=== PATIENT | male | born 1965 | race American Indian/Alaskan Native ===

== ENCOUNTER 2017-01-03 23:04 | Observation (INO) | payer SELFPAY ==
[2017-01-03 23:05] VITALS: BMI 21.9
[2017-01-03 23:11] VITALS: TEMP 97.6
--- NOTE | 2017-01-03 23:42 | C.PDOC ---
History Of Present Illness A 51 y/o male presents to the ER wanting refills for his medications and c/o hearing voices for a while now. Pt notes that has not been taking his medications regularly. Pt denies suicidal or homicidal ideation, fever, chills, or any other complaints at this time. Time Seen by Provider: 01/03/17 23:42 Chief Complaint (Nursing): Psychiatric Evaluation History Per: Patient History/Exam Limitations: no limitations Onset/Duration Of Symptoms: Days Current Symptoms Are (Timing): Still Present Suicide/Self Injury Attempted (Context): None Modifying Factor(s): None Severity: Mild Associated Symptoms: denies: Suicidal Thoughts, Suicidal Plan Involuntary Hold By: None Recent travel outside of the [place]: No Additional History Per: Patient Past Medical History Reviewed: Historical Data, Nursing Documentation, Vital Signs Vital Signs: Last Vital Signs Temp 97.6 F 01/03/17 23:08 Pulse 81 01/03/17 23:08 Resp 16 01/03/17 23:08 BP 124/83 01/03/17 23:08 Pulse Ox 98 01/04/17 01:29 - Medical History PMH: Anxiety (per old chart but pt denies), Depression (per old chart but pt denies), Schizophrenia (schizoaffective ) Denies: Diabetes, Hepatitis, HIV, HTN, Seizures, Sexually Transmitted Disease - [facility] Procedures GROUP PSYCHOTHERAPY (06/20/16) INDIVID PSYCHOTHERAP NEC (09/14/13) INDIVIDUAL PSYCHOTHERAPY, SUPPORTIVE (06/20/16) MEDICATION MANAGEMENT (01/29/16) OTHER GROUP THERAPY (09/14/13) Family History: States: Diabetes - Social History Hx Tobacco Use: Yes Hx Alcohol Use: No (former drinker) Hx Substance Use: No - Immunization History Hx Tetanus Toxoid Vaccination: No Hx Influenza Vaccination: No Hx Pneumococcal Vaccination: No Review Of Systems Constitutional: Negative for: Fever, Chills Psych: Positive for: Psychosis (Hearing voices). Negative for: Suicidal ideation, Withdrawal Physical Exam - Physical Exam Appears: Non-toxic, No Acute Distress Skin: Warm, Dry Head: Normacephalic Eye(s): bilateral: Normal Inspection Oral Mucosa: Moist Neck: Trachea Midline, Supple Chest: Symmetrical Cardiovascular: Rhythm Regular Respiratory: No Rales, No Rhonchi, No Wheezing Gastrointestinal/Abdominal: Soft, No Tenderness Neurological/Psych: Oriented x3, Normal Speech, Other (Awake and alert. No focal deficit) ED Course And Treatment - Laboratory Results Result Diagrams: 01/03/17 23:59 01/03/17 23:59 O2 Sat by Pulse Oximetry: 98 (RA) Pulse Ox Interpretation: Normal ED OBSERVATION Discharge: Yes Date of observation admission: 01/04/17 Time of observation admission: 01:29 - Observation admission statement Patient is being placed in observation because:: homeless - Goals of Observation Goals of observation are:: social service - Progress Note Progress Note: 01/04/17 01:29 no complaints, vitals stable Disposition Counseled Patient/Family Regarding: Studies Performed, Diagnosis, Need For Followup, Rx Given - Disposition Disposition: HOME/ ROUTINE Disposition Time: 23:42 Condition: FAIR - Clinical Impression Clinical Impression: Medication refill - Scribe Statement The provider has reviewed the documentation as recorded by the Scribe Gonzales hamilton All medical record entries made by the Scribe were at my direction and personally dictated by me. I have reviewed the chart and agree that the record accurately reflects my personal performance of the history, physical exam, medical decision making, and the department course for this patient. I have also personally directed, reviewed, and agree with the discharge instructions and disposition.
[2017-01-04 00:01] LABS: EOS # 0.1 K/uL (0.0-0.7); EOS % 3.3 % (0.0-4.0); HEMATOCRIT 40.7 % (35.0-51.0); LYMPH # 1.3 K/uL (1.0-4.3); LYMPH % 37.2 % (20.0-40.0); MEAN CELL VOLUME 87.8 fL (80.0-94.0); MEAN CORPUSCULAR HEMOGLOBIN 28.8 pg (27.0-31.0); MEAN CORPUSCULAR HGB CONC 32.8 g/dL (33.0-37.0); MEAN PLATELET VOLUME 8.4 fL (7.2-11.7); MONO # 0.6 K/uL (0.0-0.8); MONO % 17.5 % (0.0-10.0); NRBC % 0.1 % (0.0-2.0); RED CELL DISTRIBUTION WIDTH 14.8 % (11.5-14.5); WHITE BLOOD COUNT 3.5 K/uL (4.8-10.8)
[2017-01-04 00:34] LABS: CHLORIDE 100 mmol/L (98-107)
[2017-01-04 00:35] LABS: POTASSIUM 3.9 mmol/L (3.6-5.2); SODIUM 138 mmol/L (132-148)
[2017-01-04 00:37] LABS: ALB/GLOB RATIO 1.2 (1.0-2.1); ALKALINE PHOSPHATASE 66 U/L (38-126); AST/SGOT 31 U/L (17-59); BILIRUBIN,TOTAL 0.5 mg/dL (0.2-1.3); BLOOD UREA NITROGEN 17 mg/dL (9-20); CARBON DIOXIDE 29 mmol/L (22-30); GFR AFRICAN-AMERICAN > 60; TOTAL PROTEIN 6.7 g/dL (6.3-8.3)
[2017-01-04 00:38] LABS: ALCOHOL SERUM < 10 mg/dl (0-10); ALT/SGPT 27 U/L (21-72); CALCIUM 8.6 mg/dl (8.6-10.4); GLUCOSE,RANDOM 95 mg/dL (75-110)
[2017-01-04 05:32] VITALS: BP 113/70; PULSE 73; RESP 20; O2SAT 100
== END 2017-01-04 05:28 | disposition home or self-care (01) ==
LOC: C.ER 23:04 → C.9OBSV 01-04 01:28
PROVIDERS: ADMIT Emergency Medicine; ATTEND Emergency Medicine
DX: F29 Unspecified psychosis not due to a substance or known physiological condition (principal); Z59.0 Homelessness; Z68.21 Body mass index [BMI] 21.0-21.9, adult
CPT/HCPCS: 80053; 80164; 85025; 99284; G0378; G0480

== ENCOUNTER 2017-01-14 23:25 | Emergency (ER) | payer SELFPAY ==
[2017-01-14 23:25] VITALS: BMI 21.9
[2017-01-14 23:35] VITALS: BP 110/76; PULSE 68; RESP 20; TEMP 98.3; O2SAT 100
--- NOTE | 2017-01-15 00:45 | C.PDOC ---
History Of Present Illness 51 year old male presents to the ED seeking a refill for medicines. Patient was recently signed AMA from psych and denies any recent trauma, physical or psychiatrc complaints at this time. Time Seen by Provider: 01/14/17 23:59 Chief Complaint (Nursing): Med Refill History Per: Patient History/Exam Limitations: no limitations Reports Recently: Seen In ED, Hospitalized Recent travel outside of the [place]: No Additional History Per: Prior Records Past Medical History Reviewed: Historical Data, Nursing Documentation, Vital Signs Vital Signs: Last Vital Signs Temp 98.3 F 01/14/17 23:31 Pulse 68 01/14/17 23:31 Resp 20 01/15/17 00:49 BP 110/76 01/14/17 23:31 Pulse Ox 100 01/15/17 05:15 - Medical History PMH: Anxiety (per old chart but pt denies), Depression (per old chart but pt denies), Schizophrenia (schizoaffective ), Seizures - [facility] Procedures GROUP PSYCHOTHERAPY (06/20/16) INDIVID PSYCHOTHERAP NEC (09/14/13) INDIVIDUAL PSYCHOTHERAPY, SUPPORTIVE (06/20/16) MEDICATION MANAGEMENT (01/29/16) OTHER GROUP THERAPY (09/14/13) Family History: States: Diabetes - Social History Hx Tobacco Use: Yes Hx Alcohol Use: No (former drinker) Hx Substance Use: No - Immunization History Hx Tetanus Toxoid Vaccination: No Hx Influenza Vaccination: No Hx Pneumococcal Vaccination: No Review Of Systems Constitutional: Negative for: Fever, Chills, Sweats Cardiovascular: Negative for: Chest Pain, Palpitations Respiratory: Negative for: Cough, Shortness of Breath Gastrointestinal: Negative for: Nausea, Vomiting, Abdominal Pain, Diarrhea Psych: Negative for: Suicidal ideation Physical Exam - Physical Exam Appears: Non-toxic, No Acute Distress Skin: Warm, Dry Head: Atraumatic Eye(s): bilateral: Normal Inspection Extremity: Normal ROM Extremity: Bilateral: Atraumatic Neurological/Psych: Oriented x3 Gait: Steady ED Course And Treatment O2 Sat by Pulse Oximetry: 100 (room air ) Progress Note: Upon arrival to bed side patient was found behind the curtain openly masturbating. Patient was cautioned against so several times by nurse as well. Patient wanted a sandwich and juice but continued to masturbate openly. Pt unable to voice which meds he needed refill for. Pt advised to follow up in mental health ( [facility]) clinic Disposition - Disposition [facility]errals[facility] [[facility]] Disposition: HOME/ ROUTINE Disposition Time: 00:44 Condition: STABLE Forms: General Discharge Instructions - Clinical Impression Clinical Impression: Malingering - Scribe Statement The provider has reviewed the documentation as recorded by the Scribe Liat De Jesus All medical record entries made by the Felipeibe were at my direction and personally dictated by me. I have reviewed the chart and agree that the record accurately reflects my personal performance of the history, physical exam, medical decision making, and the department course for this patient. I have also personally directed, reviewed, and agree with the discharge instructions and disposition.
== END 2017-01-15 00:49 | disposition home or self-care (01) ==
LOC: C.ER 23:25
DX: Z76.5 Malingerer [conscious simulation] (principal)

== ENCOUNTER 2017-01-16 23:26 | Emergency (ER) | payer SELFPAY ==
[2017-01-16 23:26] VITALS: BMI 21.9
[2017-01-16 23:34] VITALS: BP 116/81; PULSE 79; RESP 20; TEMP 98.3; O2SAT 97
--- NOTE | 2017-01-16 23:41 | C.PDOC ---
History Of Present Illness 51 y/o male presents to the ED requesting medication refill of depakote. Pt with frequent visits to ED for the same. Denies any complaints at this time. Time Seen by Provider: 01/16/17 23:38 Chief Complaint (Nursing): Med Refill History Per: Patient History/Exam Limitations: no limitations Severity: None Recent travel outside of the [place]: No Past Medical History Reviewed: Historical Data, Nursing Documentation, Vital Signs Vital Signs: Last Vital Signs Temp 98.3 F 01/16/17 23:33 Pulse 79 01/16/17 23:33 Resp 20 01/16/17 23:33 BP 116/81 01/16/17 23:33 Pulse Ox 97 01/17/17 00:42 - Medical History PMH: Anxiety, Depression, Schizophrenia, Seizures - [facility] Procedures GROUP PSYCHOTHERAPY (06/20/16) INDIVID PSYCHOTHERAP NEC (09/14/13) INDIVIDUAL PSYCHOTHERAPY, SUPPORTIVE (06/20/16) MEDICATION MANAGEMENT (01/29/16) OTHER GROUP THERAPY (09/14/13) Family History: States: Diabetes - Social History Hx Tobacco Use: Yes Hx Alcohol Use: No (former drinker) Hx Substance Use: No - Immunization History Hx Tetanus Toxoid Vaccination: No Hx Influenza Vaccination: No Hx Pneumococcal Vaccination: No Review Of Systems Except As Marked, All Systems Reviewed And Found Negative. Physical Exam - Physical Exam Appears: Non-toxic, No Acute Distress, Other (Pt refuses physical exam) Skin: Dry, No Rash Head: Atraumatic, Normacephalic Eye(s): bilateral: PERRL, EOMI Extremity: Bilateral: Atraumatic Neurological/Psych: Oriented x3, Normal Speech, Normal Cognition ED Course And Treatment O2 Sat by Pulse Oximetry: 97 (room air) Pulse Ox Interpretation: Normal Progress Note: Pt understands he must follow up with psychiatric clinic Disposition - Disposition Disposition: HOME/ ROUTINE Disposition Time: 00:20 Condition: GOOD Prescriptions: Divalproex [Depakote ER] 500 mg PO DAILY #5 ter Forms: General Discharge Instructions - Clinical Impression Clinical Impression: Medication refill, Malingering - PA / NON 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 - Scribe Statement The provider has reviewed the documentation as recorded by the Scribleah Payne All medical record entries made by the Scribe were at my direction and personally dictated by me. I have reviewed the chart and agree that the record accurately reflects my personal performance of the history, physical exam, medical decision making, and the department course for this patient. I have also personally directed, reviewed, and agree with the discharge instructions and disposition.
== END 2017-01-16 23:45 | disposition home or self-care (01) ==
LOC: C.ER 23:26
DX: Z76.0 Encounter for issue of repeat prescription (principal); Z76.5 Malingerer [conscious simulation]

== ENCOUNTER 2017-01-24 03:38 | Emergency (ER) | payer SELFPAY ==
[2017-01-24 03:38] VITALS: BMI 21.9
[2017-01-24 03:55] VITALS: BP 127/72; PULSE 77; RESP 14; TEMP 98.9; O2SAT 98
--- NOTE | 2017-01-24 04:14 | C.PDOC ---
History Of Present Illness Pt request medication refill. Denies any medical complaints. No f/c/n/v Time Seen by Provider: 01/24/17 04:11 Chief Complaint (Nursing): Med Refill History Per: Patient History/Exam Limitations: no limitations Onset/Duration Of Symptoms: Unknown Current Symptoms Are (Timing): Still Present Severity: None Pain Scale Rating Of: 0 Reports Recently: Seen In ED, Treated By A Physician, Hospitalized Recent travel outside of the [place]: No Additional History Per: Patient Past Medical History Reviewed: Historical Data, Nursing Documentation, Vital Signs Vital Signs: Last Vital Signs Temp 98.9 F 01/24/17 03:52 Pulse 77 01/24/17 03:52 Resp 14 01/24/17 03:52 BP 127/72 01/24/17 03:52 Pulse Ox 98 01/24/17 03:52 - Medical History PMH: Anxiety, Depression, Schizophrenia, Seizures Denies: Diabetes, Hepatitis, HIV, HTN, Sexually Transmitted Disease - [facility] Procedures GROUP PSYCHOTHERAPY (06/20/16) INDIVID PSYCHOTHERAP NEC (09/14/13) INDIVIDUAL PSYCHOTHERAPY, SUPPORTIVE (06/20/16) MEDICATION MANAGEMENT (01/29/16) OTHER GROUP THERAPY (09/14/13) Family History: States: Diabetes - Social History Hx Tobacco Use: Yes Hx Alcohol Use: No (former drinker) Hx Substance Use: No - Immunization History Hx Tetanus Toxoid Vaccination: No Hx Influenza Vaccination: No Hx Pneumococcal Vaccination: No Review Of Systems Constitutional: Negative for: Fever Respiratory: Negative for: Shortness of Breath Gastrointestinal: Negative for: Nausea, Vomiting Genitourinary: Negative for: Dysuria Musculoskeletal: Negative for: Neck Pain Skin: Negative for: Rash Neurological: Negative for: Weakness Psych: Negative for: Anxiety, Depression, Suicidal ideation Physical Exam - Physical Exam Appears: Non-toxic, No Acute Distress Skin: Warm, Dry Neck: Supple Chest: Symmetrical Cardiovascular: Rhythm Regular Respiratory: No Rales, No Rhonchi, No Wheezing Gastrointestinal/Abdominal: Soft, No Tenderness Back: No CVA Tenderness Extremity: Normal ROM Extremity: Bilateral: Atraumatic Neurological/Psych: Oriented x3 Gait: Steady ED Course And Treatment O2 Sat by Pulse Oximetry: 98 Pulse Ox Interpretation: Normal Disposition Counseled Patient/Family Regarding: Studies Performed, Diagnosis - Disposition Referrals: [facility] [Outside] Disposition: HOME/ ROUTINE Disposition Time: 04:12 Condition: FAIR Prescriptions: Divalproex [Depakote ER] 500 mg PO BID #20 ter Olanzapine [Zyprexa] 20 mg PO DAILY #10 tablet Instructions: Medicine Refill (ED) - Clinical Impression Clinical Impression: Medication refill
== END 2017-01-24 04:50 | disposition home or self-care (01) ==
LOC: C.ER 03:38
DX: Z76.0 Encounter for issue of repeat prescription (principal)

== ENCOUNTER 2017-01-27 03:08 | Emergency (ER) | payer SELFPAY ==
[2017-01-27 03:08] VITALS: BMI 21.9
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
[2017-01-27 05:08] VITALS: BP 128/77; PULSE 74; RESP 18; TEMP 98.3; O2SAT 99
== END 2017-01-27 05:14 | disposition home or self-care (01) ==
LOC: C.ER 03:08
DX: F25.9 Schizoaffective disorder, unspecified (principal)

== ENCOUNTER 2017-01-30 21:15 | Emergency (ER) | payer SELFPAY ==
[2017-01-30 21:16] VITALS: BMI 21.9
[2017-01-30 21:21] VITALS: BP 130/83; PULSE 61; RESP 18; TEMP 98.4; O2SAT 100
--- NOTE | 2017-01-30 21:31 | C.PDOC ---
History Of Present Illness Patient is a 51 year old male who presents to the ER requesting a refill of his zyprexa and depakote. Patient is well known to the ER for requesting refills of his medication. Patient was referred to the clinic by crisis, however patient never followed up. Patient is also requesting a sandwich. Denies fever or chills or psychiatric c/o. Chief Complaint (Nursing): Med Refill History Per: Patient History/Exam Limitations: no limitations Onset/Duration Of Symptoms: Hrs Current Symptoms Are (Timing): Still Present Reports Recently: Seen In ED Recent travel outside of the [place]: No Past Medical History Reviewed: Historical Data, Nursing Documentation, Vital Signs Vital Signs: Last Vital Signs Temp 98.4 F 01/30/17 21:19 Pulse 61 01/30/17 21:19 Resp 18 01/30/17 21:19 BP 130/83 01/30/17 21:19 Pulse Ox 100 01/31/17 02:56 - Medical History PMH: Anxiety, Depression, Schizophrenia Surgical History: No Surg Hx - [facility] Procedures GROUP PSYCHOTHERAPY (06/20/16) INDIVID PSYCHOTHERAP NEC (09/14/13) INDIVIDUAL PSYCHOTHERAPY, SUPPORTIVE (06/20/16) MEDICATION MANAGEMENT (01/29/16) OTHER GROUP THERAPY (09/14/13) Family History: States: Diabetes - Social History Hx Tobacco Use: Yes Hx Alcohol Use: No (former drinker) Hx Substance Use: No - Immunization History Hx Tetanus Toxoid Vaccination: No Hx Influenza Vaccination: No Hx Pneumococcal Vaccination: No Review Of Systems Constitutional: Negative for: Fever, Chills Gastrointestinal: Negative for: Nausea, Vomiting, Diarrhea Physical Exam - Physical Exam Appears: Non-toxic, No Acute Distress Skin: Normal Color, Warm, Dry Head: Atraumatic, Normacephalic Oral Mucosa: Moist Chest: Symmetrical, No Tenderness Cardiovascular: Rhythm Regular, No Murmur Respiratory: Normal Breath Sounds, No Rales, No Rhonchi, No Wheezing Neurological/Psych: Oriented x3, Normal Speech, Normal Cognition ED Course And Treatment O2 Sat by Pulse Oximetry: 100 (Room air) Pulse Ox Interpretation: Normal Progress Note: Patient referred to follow up at [facility]. Disposition - Disposition Referrals: FAMILY PROVIDER,NO [Primary Care Provider] - Disposition: HOME/ ROUTINE Disposition Time: 21:31 Condition: STABLE Additional Instructions: Follow up [facility] Forms: General Discharge Instructions - Clinical Impression Clinical Impression: Malingering - Scribe Statement The provider has reviewed the documentation as recorded by the Scribe Eagle Dinero All medical record entries made by the Scribe were at my direction and personally dictated by me. I have reviewed the chart and agree that the record accurately reflects my personal performance of the history, physical exam, medical decision making, and the department course for this patient. I have also personally directed, reviewed, and agree with the discharge instructions and disposition.
== END 2017-01-30 21:45 | disposition home or self-care (01) ==
LOC: SUPCPDRO 21:15 → C.ER 21:15
DX: Z76.5 Malingerer [conscious simulation] (principal)